=== PATIENT | male | born 2000 | race Caucasian/White ===

== ENCOUNTER → 2019-07-13 | Outpatient (REF) | payer OTHER | LOC: M SFHCLERA 17:56 | PROVIDERS: ATTEND Nurse Practitioner Family | DX: R50.9 Fever, unspecified (principal) ==

== ENCOUNTER → 2019-07-13 | Outpatient (CLI) | payer SELFPAY ==
--- NOTE | 2019-07-13 17:26 | REP ---
Chest x-ray: Two views. History: Cough . Comparison study: No comparison . Findings: The lungs are well inflated and free of infiltrate. The pleural angles are sharp. The heart size is normal. Pulmonary vasculature is not increased. No significant bony abnormality is seen. Impression: Negative chest x-ray. Electronically Signed by Bill Madison MD 07/13/2019 05:17 P
== END ==
LOC: M LRY 17:02
PROVIDERS: ATTEND Nurse Practitioner Family
DX: R05 Cough (principal)